=== PATIENT | male | born 1990 | race Caucasian/White ===

== ENCOUNTER 2018-01-30 08:54 | Inpatient (IN) | payer OTHER | END 2018-02-04 10:19 | disposition home or self-care (01) | DRG 773 | LOC: YASAS 08:54 → Y3N 13:25 | PROVIDERS: ADMIT Internal Medicine | PROC: HZ2ZZZZ Detoxification Services for Substance Abuse Treatment (ICD-10-PCS; principal; 2018-01-30) | CPT/HCPCS: 36415; 80053; 81003; 84450; 84460; 85027; 86593; 93005; 93010 ==

== ENCOUNTER 2018-11-18 16:48 | Inpatient (IN) | payer OTHER ==
[2018-11-18 18:32] VITALS: BMI 23.7
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
[2018-11-18] MEDS ORDERED: MAGNESIUM HYDROX 2400MG/30ML ORAL SUSPENSION 30 ML CUP PO PRN (20:47)
[2018-11-18] MEDS ORDERED: MAG HYDROX/AL HYDROX/SIMETH 30 ML UNIT-DOSE CUP PO PRN (20:47)
[2018-11-18] MEDS ORDERED: ACETAMINOPHEN 325 MG TABLET (FP) PO PRN (20:47)
[2018-11-18] MEDS ORDERED: chlordiazePOXIDE HCL 25 MG CAPSULE PO ONE (20:47)
[2018-11-18] MEDS ORDERED: hydrOXYzine PAMOATE 25 MG CAPSULE (FP) PO PRN (20:47)
[2018-11-18] MEDS ORDERED: MENTHOL/PHENOL 1 EACH UD MM PRN (20:47)
[2018-11-18] MEDS ORDERED: MAGNESIUM CITRATE 300 ML BOTTLE PO PRN (20:47)
[2018-11-18] MEDS ORDERED: P-EPHED 60MG/TRIPROLIDI 2.5MG TABLET PO PRN (20:47)
[2018-11-18] MEDS ORDERED: NICOTINE POLACRILEX 4 MG GUM BC PRN (20:47)
[2018-11-18] MEDS ORDERED: IBUPROFEN 400 MG TABLET (FP) PO PRN (20:47)
[2018-11-18] MEDS ORDERED: guaiFENesin/D-METHORPHAN HB 10 ML UNIT-DOSE CUPS PO PRN (20:47)
[2018-11-18] MEDS ORDERED: LOPERAMIDE HCL 2 MG CAPSULE PO PRN (20:47)
[2018-11-18] MEDS ORDERED: chlordiazePOXIDE HCL 25 MG CAPSULE PO PRN (20:47)
[2018-11-18] MEDS ORDERED: METHADONE HCL 10 MG TABLET (FOR DETOX USE ONLY) PO ONE ×2 (21:30→23:00)
[2018-11-18] MEDS ORDERED: MELATONIN 5 MG TABLETS PO PRN (22:00)
[2018-11-18] MEDS: THIAMINE HCL 100 MG TABLET (FP) PO SCH (23:51)
[2018-11-18] MEDS: chlordiazePOXIDE HCL 25 MG CAPSULE PO SCH (23:55)
[2018-11-19] MEDS: chlordiazePOXIDE HCL 25 MG CAPSULE PO SCH ×4 (06:21→22:13)
[2018-11-19] MEDS ORDERED: METHADONE HCL 10 MG TABLET (FOR DETOX USE ONLY) PO SCH (10:00)
--- NOTE | 2018-11-19 10:28 | PN ---
S CIWA - CIWA Score Nausea/Vomitin Muscle Tremors: 2 Anxiety: 2 Agitation: 2 Paroxysmal Sweats: 1-Minimal Palms Moist Orientation: 0-Oriented Tacttile Disturbances: 1-Very Mild Itch/Numbness Auditory Disturbances: 1-Very Mild Visual Disturbances: 0-None Headache: 2-Mild CIWA-Ar Total Score: 13 BHS COWS - Scale Resting Pulse: 0= [place] 80 or Below Sweatin= Chills/Flushing Restless Observation: 3= Extraneous Movement Pupil Size: 1= Pupils >than Normal Bone or Joint Aches: 2= Severe Diffuse Aches Runny Nose/ Eye Tearin= Runny Nose/Eyes GI Upset > 30mins: 2= Nausea/Diarrhea Tremor Observation of Outstretched Hands: 2= Slight Tremor Visible Yawning Observation: 1= 1-2x During Session Anxiety or Irritability: 2=Irritable/Anxious Goose Flesh Skin: 0=Smooth Skin COWS Score: 16 S Progress Note (SOAP) Subjective: alert,irritable,anxious,interrupted sleep,tremor,pain in the body and back Objective: 11/19/18 10:27 Vital Signs Temperature 98.4 F 11/19/18 09:45 Pulse Rate 62 11/19/18 09:45 Respiratory Rate 16 11/19/18 09:45 Blood Pressure 123/67 11/19/18 09:45 O2 Sat by Pulse Oximetry (%) 11/19/18 10:27 labs pending Assessment: 11/19/18 10:28 withdrawal symptom Plan: continue detox
[2018-11-19 10:49] LABS: HEMATOCRIT 39.2 % (35.4-49); HEMOGLOBIN 13.2 GM/dL (11.7-16.9); MCHC 33.7 g/dl (32.0-35.9); MEAN PLT VOLUME 7.6 fl (7.5-11.1); PLATELET COUNT 206 K/MM3 (134-434); RBC 4.13 M/mm3 (4.00-5.60); RDW 13.8 % (11.9-15.9); WHITE BLOOD COUNT 3.8 K/mm3 (4.0-10.0)
[2018-11-19 10:56] LABS: ALBUMIN 3.1 g/dl (3.4-5.0); ALK PHOS 239 U/L (45-117); ANION GAP 7 MMOL/L (8-16); BILIRUBIN,TOTAL 0.4 mg/dL (0.2-1); BLOOD UREA NITROGEN 13 mg/dL (7-18); CALCIUM 8.8 mg/dL (8.5-10.1); CHLORIDE 102 mmol/L (98-107); CO2 27 mmol/L (21-32); CREATININE 0.8 mg/dL (0.55-1.3); GLUCOSE,RANDOM 114 mg/dL (74-106); POTASSIUM 3.9 mmol/L (3.5-5.1); SGOT/AST 306 U/L (15-37); SGPT/ALT 365 U/L (13-61); SODIUM 137 mmol/L (136-145); TOT PROT 7.4 g/dl (6.4-8.2)
[2018-11-19] MEDS: PRENATAL VITAMINS W/ FOLIC ACID TABLET (FP) PO SCH (11:10)
[2018-11-19] MEDS: NICOTINE 21 MG/24 HOURS TOPICAL PATCH TD SCH (11:10)
[2018-11-19] MEDS: cloNIDine HCL 0.1 MG TABLET PO SCH (22:12)
[2018-11-19] MEDS: THIAMINE HCL 100 MG TABLET (FP) PO SCH (22:15)
[2018-11-20] MEDS: chlordiazePOXIDE HCL 25 MG CAPSULE PO SCH ×3 (06:16→17:38)
[2018-11-20] MEDS: PRENATAL VITAMINS W/ FOLIC ACID TABLET (FP) PO SCH (10:27)
[2018-11-20] MEDS: cloNIDine HCL 0.1 MG TABLET PO SCH ×2 (10:27→22:06)
[2018-11-20] MEDS: NICOTINE 21 MG/24 HOURS TOPICAL PATCH TD SCH (10:27)
[2018-11-20] MEDS: METHADONE HCL 5 MG TABLET (FOR DETOX USE ONLY) PO SCH (10:27)
[2018-11-20] MEDS: CYCLOBENZAPRINE HCL 10 MG TABLET (FP) PO PRN ×2 (10:29→22:05)
--- NOTE | 2018-11-20 17:15 | PN ---
[facility] CIWA - CIWA Score Nausea/Vomitin-No Nausea/No Vomiting Muscle Tremors: 3 Anxiety: 3 Agitation: 1-Slight > Activity Paroxysmal Sweats: 3 Orientation: 0-Oriented Tacttile Disturbances: 2-Mild Itch/Numbness/Burn Auditory Disturbances: 2-Mild Harshness/Frighten Visual Disturbances: 0-None Headache: 0-None Present CIWA-Ar Total Score: 14 S COWS - Scale Resting Pulse: 0= [place] 80 or Below Sweatin= Chills/Flushing Restless Observation: 0= Sits Still Pupil Size: 0= Normal to Room Light Bone or Joint Aches: 2= Severe Diffuse Aches Runny Nose/ Eye Tearin= None GI Upset > 30mins: 1= Stomach Cramp Tremor Observation of Outstretched Hands: 2= Slight Tremor Visible Yawning Observation: 1= 1-2x During Session Anxiety or Irritability: 2=Irritable/Anxious Goose Flesh Skin: 3=Piloerection COWS Score: 12 S Progress Note (SOAP) Subjective: Body Aches, Stomach Cramping, Tremors, Sweating. Objective: PATIENT A & O X 3. IN NO ACUTE DISTRESS. 11/20/18 17:12 Vital Signs Temperature 98.2 F 11/20/18 17:03 Pulse Rate 62 11/20/18 17:03 Respiratory Rate 18 11/20/18 17:03 Blood Pressure 92/46 L 11/20/18 17:03 O2 Sat by Pulse Oximetry (%) Laboratory Tests 11/19/18 11/19/18 11/19/18 08:10 08:10 08:10 WBC 3.8 L RBC 4.13 Hgb 13.2 Hct 39.2 MCV 95.0 MCH 32.0 MCHC 33.7 RDW 13.8 Plt Count 206 MPV 7.6 D Sodium 137 Potassium 3.9 Chloride 102 Carbon Dioxide 27 Anion Gap 7 L BUN 13 Creatinine 0.8 Creat Clearance w eGFR > 60 Random Glucose 114 H Calcium 8.8 Total Bilirubin 0.4 AST 306 H ALT 365 H Alkaline Phosphatase 239 H Total Protein 7.4 Albumin 3.1 L RPR Titer Nonreactive LABS NOTED. Assessment: 11/20/18 17:13 WITHDRAWAL SYMPTOMS. ELEVATED LIVER ENZYMES. 11/20/18 17:23 Plan: CONTINUE DETOX. CHANGE PATIENT FROM LIBRIUM DETOX PROTOCOL OVER TO ATIVAN DETOX PROTOCOL DUE TO SIGNIFICANTLY ELEVATE DLIVER ENZYMES NOTED ON ADMISSION. HFP TOMORROW AM TO SEE IF ANY CHANGE IN LIVER ENZYMES. INCREASE DAILY PO FLUID INTAKE. PRN FLEXERIL PO FOR BODY ACHES / MUSCLE SPASMS.
[2018-11-20] MEDS ORDERED: LORazepam 0.5 MG TABLET PO PRN (17:18)
[2018-11-20] MEDS ORDERED: LORazepam 1 MG TABLET PO ONE (22:00)
[2018-11-20] MEDS: THIAMINE HCL 100 MG TABLET (FP) PO SCH (22:05)
[2018-11-20] MEDS ORDERED: chlordiazePOXIDE 5 MG CAPSULE PO SCH (23:00)
[2018-11-21] MEDS: LORazepam 0.5 MG TABLET PO SCH ×2 (07:46→10:20)
[2018-11-21 09:06] VITALS: BP 103/58; PULSE 56; TEMP 98
[2018-11-21] MEDS: NICOTINE 21 MG/24 HOURS TOPICAL PATCH TD SCH (10:19)
[2018-11-21] MEDS: PRENATAL VITAMINS W/ FOLIC ACID TABLET (FP) PO SCH (10:19)
[2018-11-21] MEDS: METHADONE HCL 5 MG TABLET (FOR DETOX USE ONLY) PO SCH (10:20)
[2018-11-21] MEDS: cloNIDine HCL 0.1 MG TABLET PO SCH (10:22)
[2018-11-21] MEDS: CYCLOBENZAPRINE HCL 10 MG TABLET (FP) PO PRN (10:24)
--- NOTE | 2018-11-21 10:25 | PN ---
S Progress Note (SOAP) Subjective: alert,irritable,anxious,interrupted sleep,tremor,pain in the body Objective: 11/21/18 10:23 Vital Signs Temperature 98.0 F 11/21/18 09:05 Pulse Rate 56 L 11/21/18 09:05 Respiratory Rate 18 11/21/18 09:05 Blood Pressure 103/58 L 11/21/18 09:05 O2 Sat by Pulse Oximetry (%) 11/21/18 10:23 Laboratory Last Values WBC 3.8 K/mm3 (4.0-10.0) L 11/19/18 08:10 RBC 4.13 M/mm3 (4.00-5.60) 11/19/18 08:10 Hgb 13.2 GM/dL (11.7-16.9) 11/19/18 08:10 Hct 39.2 % (35.4-49) 11/19/18 08:10 MCV 95.0 fl (80-96) 11/19/18 08:10 MCH 32.0 pg (25.7-33.7) 11/19/18 08:10 MCHC 33.7 g/dl (32.0-35.9) 11/19/18 08:10 RDW 13.8 % (11.9-15.9) 11/19/18 08:10 Plt Count 206 K/MM3 (134-434) 11/19/18 08:10 MPV 7.6 fl (7.5-11.1) D 11/19/18 08:10 Sodium 137 mmol/L (136-145) 11/19/18 08:10 Potassium 3.9 mmol/L (3.5-5.1) 11/19/18 08:10 Chloride 102 mmol/L (98-107) 11/19/18 08:10 Carbon Dioxide 27 mmol/L (21-32) 11/19/18 08:10 Anion Gap 7 MMOL/L (8-16) L 11/19/18 08:10 BUN 13 mg/dL (7-18) 11/19/18 08:10 Creatinine 0.8 mg/dL (0.55-1.3) 11/19/18 08:10 Creat Clearance w eGFR > 60 (>60) 11/19/18 08:10 Random Glucose 114 mg/dL (74-106) H 11/19/18 08:10 Calcium 8.8 mg/dL (8.5-10.1) 11/19/18 08:10 Total Bilirubin 0.4 mg/dL (0.2-1) 11/19/18 08:10 AST 306 U/L (15-37) H 11/19/18 08:10 ALT 365 U/L (13-61) H 11/19/18 08:10 Alkaline Phosphatase 239 U/L (45-117) H 11/19/18 08:10 Total Protein 7.4 g/dl (6.4-8.2) 11/19/18 08:10 Albumin 3.1 g/dl (3.4-5.0) L 11/19/18 08:10 RPR Titer Nonreactive (NONREACTIVE) 11/19/18 08:10 Assessment: 11/21/18 10:24 withdrawal symptom Plan: continue detox,d/c tylenol,awaiting for repeat cmp
[2018-11-21 11:01] LABS: ALBUMIN 3.2 g/dl (3.4-5.0); BILIRUBIN,DIRECT 0.1 mg/dL (0.0-0.2); BILIRUBIN,TOTAL 0.5 mg/dL (0.2-1); TOT PROT 7.9 g/dl (6.4-8.2)
--- NOTE | 2018-11-21 11:30 | PN ---
S Progress Note Note: pt is feeling comfortable and needs to go to court in the morning. pt will be d/ c today.
--- NOTE | 2018-11-21 11:34 | DS ---
[facility] Detox Discharge Summary Admission Date: 11/18/18 Discharge Date: 11/21/18 - History Present History: Cannabis Dependence, Cocaine Dependence, Opioid Dependence, Sedative Dependence - Physical Exam Results Vital Signs: Vital Signs Temperature 98.0 F 11/21/18 09:05 Pulse Rate 56 L 11/21/18 09:05 Respiratory Rate 18 11/21/18 09:05 Blood Pressure 103/58 L 11/21/18 09:05 O2 Sat by Pulse Oximetry (%) - Treatment Hospital Course: Detox Protocol Followed, Detoxed Safely, Responded well, Discharged Condition Good, Rehab Referral Accepted - Medication Discharge Medications: Ambulatory Orders NK [No Known Home Medication] 01/30/18 - Diagnosis (1) Elevated liver enzymes Current Visit: Yes Status: Acute (2) Cannabis dependence Current Visit: Yes Status: Chronic (3) Cocaine dependence, uncomplicated Current Visit: No Status: Acute (4) Dehydration Current Visit: Yes Status: Chronic (5) Insomnia Current Visit: No Status: Acute (6) Insomnia secondary to depression with anxiety Current Visit: No Status: Acute (7) Opioid dependence with withdrawal Current Visit: Yes Status: Chronic (8) Substance-induced sleep disorder Current Visit: No Status: Acute (9) Uncomplicated sedative, hypnotic or anxiolytic withdrawal Current Visit: Yes Status: Acute (10) Weight loss Current Visit: No Status: Acute (11) Cocaine dependence Current Visit: No Status: Chronic Qualifiers: Substance use status: uncomplicated Qualified Code(s): F14.20 - Cocaine dependence, uncomplicated (12) IV drug user Current Visit: No Status: Chronic (13) Nicotine dependence Current Visit: Yes Status: Chronic Qualifiers: Nicotine product type: cigarettes Substance use status: uncomplicated Qualified Code(s): F17.210 - Nicotine dependence, cigarettes, uncomplicated (14) Opioid dependence Current Visit: Yes Status: Chronic Qualifiers: Substance use status: uncomplicated Qualified Code(s): F11.20 - Opioid dependence, uncomplicated (15) Substance induced mood disorder Current Visit: No Status: Suspected - AMA Did Patient Leave Against Medical Advice: No (going home.)
[2018-11-21] MEDS ORDERED: chlordiazePOXIDE HCL 10 MG CAPSULE PO SCH (23:00)
[2018-11-22] MEDS ORDERED: LORazepam 0.5 MG TABLET PO ONE (06:00)
[2018-11-22] MEDS ORDERED: METHADONE HCL 10 MG TABLET (FOR DETOX USE ONLY) PO SCH (10:00)
[2018-11-23] MEDS ORDERED: METHADONE HCL 5 MG TABLET (FOR DETOX USE ONLY) PO SCH (06:00)
== END 2018-11-21 12:25 | disposition home or self-care (01) | DRG 773 ==
LOC: YASAS 16:48 → Y6N 20:55
PROVIDERS: ADMIT Surgery; ATTEND Surgery
PROC: HZ2ZZZZ Detoxification Services for Substance Abuse Treatment (ICD-10-PCS; principal; 2018-11-18)
DX: F11.23 Opioid dependence with withdrawal (principal); F13.230 Sedative, hypnotic or anxiolytic dependence with withdrawal, uncomplicated; F10.230 Alcohol dependence with withdrawal, uncomplicated; F14.20 Cocaine dependence, uncomplicated; F12.20 Cannabis dependence, uncomplicated; F17.210 Nicotine dependence, cigarettes, uncomplicated; F51.05 Insomnia due to other mental disorder; F19.282 Other psychoactive substance dependence with psychoactive substance-induced sleep disorder; E86.0 Dehydration; R94.5 Abnormal results of liver function studies
CPT/HCPCS: 36415; 80053; 80076; 85027; 86593; J0735